=== PATIENT | male | born 1945 | race Caucasian/White ===

== ENCOUNTER 2019-09-18 23:50 | Observation (INO) | payer MEDICARE, OTHER ==
[2019-09-19] MEDS ORDERED: Sodium Chloride 0.9% 1000 ML 1,000 ML IV STA (00:02)
--- NOTE | 2019-09-19 00:16 | ERPHSYRPT ---
- History of Present Illness Time Seen by Provider: 09/18/19 23:58 Historian: patient Exam Limitations: no limitations Physician History: Patient is a 74-year-old male presents to our ED with complaints of left lower quadrant pain. Pain started today at approximately 5 PM. Patient states he had been feeling bloated all day. Pain described as an ache that is localized to the left lower quadrant. Patient states the pain tends to come and go in waves. No testicular pain. Pain is associated with diarrhea. Diarrhea is nonbloody nonbilious. No nausea or vomiting. No trauma. No fevers. Symptoms are mild to moderate in intensity. Pain is currently mild. Patient declined pain medication. Patient denies previous history of the same. Patient is otherwise generally healthy. He voices no other complaints at this time. Timing/Duration: today Activities at Onset: none Quality: cramping Abdominal Pain Onset Location: LLQ Pain Radiation: no radiation Severity of Pain-Max: moderate Severity of Pain-Current: moderate Modifying Factors: Improves With: nothing Associated Symptoms: diarrhea, No chest pain, No nausea, No shortness of breath , No testicular pain Previous symptoms: no prior history Allergies/Adverse Reactions: enalapril Adverse Reaction (Verified 09/19/19 00:15) Home Medications: Amlodipine Besylate 5 mg PO DAILY 09/19/19 [History] Metoprolol Succinate 100 mg PO DAILY 09/19/19 [History] Tolterodine Tartrate [Tolterodine Tartrate ER] 4 mg PO DAILY 09/19/19 [History] - Review of Systems Constitutional: No Symptoms, No Fever, No Chills Eyes: No Symptoms Ears, Nose, & Throat: No Symptoms Respiratory: No Symptoms, No Cough, No Dyspnea Cardiac: No Symptoms, No Chest Pain, No Edema, No Syncope Abdominal/Gastrointestinal: Abdominal Pain, Diarrhea, No Nausea, No Vomiting Genitourinary Symptoms: No Symptoms, No Dysuria Musculoskeletal: No Symptoms, No Back Pain, No Neck Pain Skin: No Symptoms, No Rash Neurological: No Symptoms, No Dizziness, No Focal Weakness, No Sensory Changes Psychological: No Symptoms Endocrine: No Symptoms Hematologic/Lymphatic: No Symptoms Immunological/Allergic: No Symptoms All Other Systems: Reviewed and Negative - Past Medical History Pertinent Past Medical History: Yes Neurological History: No Pertinent History ENT History: No Pertinent History Cardiac History: Hypertension Respiratory History: No Pertinent History Endocrine Medical History: No Pertinent History Musculoskeletal History: Arthritis GI Medical History: Other History: No Pertinent History Psycho-Social History: No Pertinent History Male Reproductive Disorders: Prostate Cancer Other Medical History: Fatty Liver. Prostate removed 08/2018 - Past Surgical History Past Surgical History: Yes Neuro Surgical History: No Pertinent History Cardiac: No Pertinent History Respiratory: No Pertinent History Gastrointestinal: No Pertinent History Genitourinary: No Pertinent History Musculoskeletal: No Pertinent History Male Surgical History: Prostate Surgery - Social History Drug Use: none - Nursing Vital Signs Nursing Vital Signs: Initial Vital Signs Temperature 97.4 F 09/18/19 23:54 Pulse Rate 74 09/18/19 23:54 Respiratory Rate 18 09/18/19 23:54 Blood Pressure 128/90 09/18/19 23:54 O2 Sat by Pulse Oximetry 96 09/18/19 23:54 Pain Scale Pain Intensity 8 - Physical Exam General Appearance: no apparent distress, alert Eye Exam: PERRL/EOMI, eyes nml inspection Ears, Nose, Throat Exam: normal ENT inspection, pharynx normal, moist mucous membranes Neck Exam: normal inspection, non-tender, supple, full range of motion Respiratory Exam: normal breath sounds, lungs clear, No respiratory distress Cardiovascular Exam: regular rate/rhythm, normal heart sounds Gastrointestinal/Abdomen Exam: soft, tenderness, No mass, No guarding, No pulsatile mass, No rebound, No organomegaly, No splenomegaly (TTP LLQ. Overlying soft tissue intact.) Back Exam: normal inspection, normal range of motion, No CVA tenderness, No vertebral tenderness Extremity Exam: normal inspection, normal range of motion, pelvis stable Neurologic Exam: alert, oriented x 3, cooperative, normal mood/affect, nml cerebellar function, sensation nml, No motor deficits Skin Exam: normal color, warm, dry SpO2 Interpretation: normal SpO2: 96 O2 Delivery: Room Air - Course Nursing assessment & vital signs reviewed: Yes - CT Exams Abdomen/Pelvis CT Interpretation: Tele-radiologist Report (CT reveals possible granulomatous disease, coronary artery calcifications, dilated bile ducts, degenerative joint disease.) Ordered Tests: Active Orders 24 hr Category Date Time Status IV Insertion STAT Care 09/19/19 00:02 Active Isolation, Initiate & Maintain Q4H Care 09/19/19 00:14 Active ABDOMEN AND PELVIS W/0 CONTRAS [CT] Stat Exams 09/19/19 00:03 Taken CBC W DIFF Stat Lab 09/19/19 00:20 Completed CMP Stat Lab 09/19/19 00:20 Completed CULTURE,URINE Stat Lab 09/19/19 01:00 Received LIPASE Stat Lab 09/19/19 00:20 Completed TROPONIN Q3H Lab 09/19/19 00:20 Completed TROPONIN Q3H Lab 09/19/19 03:15 Ordered TROPONIN Q3H Lab 09/19/19 06:15 Ordered TROPONIN Q3H Lab 09/19/19 09:15 Ordered TROPONIN Q3H Lab 09/19/19 12:15 Ordered UA W/RFX UR CULTURE Stat Lab 09/19/19 01:00 Completed Transfer Order Routine Transfer 09/19/19 Ordered Medication Summary Generic Name Dose Route Start Last Admin Trade Name Freq PRN Reason Stop Dose Admin Piperacillin Sod/Tazobactam Sod 3.375 gm in 100 mls @ 200 mls/hr 09/19/19 01: 32 Zosyn 3.375gm/100 Ml D5w IV 09/19/19 02:01 STAT STA Discontinued Medications Generic Name Dose Route Start Last Admin Trade Name Freq PRN Reason Stop Dose Admin Sodium Chloride 1,000 mls @ 999 mls/hr 09/19/19 00:02 09/19/19 00:36 Sodium Chloride 0.9% 1000 Ml IV 09/19/19 01:02 999 mls/hr .Q1H1M STA Administration Sodium Chloride Confirm 09/19/19 00:34 Sodium Chloride 0.9% 1000 Ml Administered 09/19/19 00:35 Dose 1,000 mls @ ud .ROUTE .STK-MED ONE Piperacillin Sod/Tazobactam Sod Confirm 09/19/19 01:45 Zosyn 3.375gm/100 Ml D5w Administered 09/19/19 01:46 Dose 3.375 gm in 100 mls @ ud IV .STK-MED ONE Morphine Sulfate 2 mg 09/19/19 00:31 09/19/19 00:33 Morphine Sulfate 2 Mg Inj IV 09/19/19 00:32 2 mg STAT ONE Administration Morphine Sulfate Confirm 09/19/19 00:32 Morphine Sulfate 2 Mg Inj Administered 09/19/19 00:33 Dose 2 mg .ROUTE .STK-MED ONE Morphine Sulfate 2 mg 09/19/19 01:36 09/19/19 01:40 Morphine Sulfate 2 Mg Inj IV 09/19/19 01:37 2 mg STAT ONE Administration Morphine Sulfate Confirm 09/19/19 01:38 Morphine Sulfate 2 Mg Inj Administered 09/19/19 01:39 Dose 2 mg .ROUTE .STK-MED ONE Ondansetron HCl 4 mg 09/19/19 00:43 09/19/19 00:46 Zofran 4 Mg/2 Ml Vial IV 09/19/19 00:44 4 mg STAT ONE Administration Ondansetron HCl Confirm 09/19/19 00:45 Zofran 4 Mg/2 Ml Vial Administered 09/19/19 00:46 Dose 4 mg .ROUTE .STK-MED ONE Lab/Rad Data: Laboratory Result Diagrams 09/19/19 00:20 09/19/19 00:20 Laboratory Results 09/19/19 09/19/19 09/19/19 Range/Units 01:00 00:20 00:20 WBC (4.0-10.5) K/mm3 RBC (4.1-5.6) M/mm3 Hgb (12.5-18.0) gm/dl Hct (42-50) % MCV (78-100) fl MCH (26-32) pg MCHC (32-36) g/dl RDW (11.5-14.0) % Plt Count (150-450) K/mm3 MPV (7.5-11.0) fl Gran % (36.0-66.0) % Eos # (Auto) (0-0.5) Absolute Lymphs (auto) (1.0-4.6) Absolute Monos (auto) (0.0-1.3) Lymphocytes % (24.0-44.0) % Monocytes % (0.0-12.0) % Eosinophils % (0.00-5.0) % Basophils % (0.0-0.4) % Absolute Granulocytes (1.4-6.9) Basophils # (0-0.4) Sodium 143 (137-145) mmol/L Potassium 4.1 (3.5-5.1) mmol/L Chloride 109 H (98-107) mmol/L Carbon Dioxide 21 L (22-30) mmol/L Anion Gap 17.2 H (5-15) MEQ/L BUN 24 H (9-20) mg/dL Creatinine 1.49 H (0.66-1.25) mg/dL Estimated GFR 49.3 ML/MIN Glucose 150 H (74-106) mg/dL Calcium 9.8 (8.4-10.2) mg/dL Total Bilirubin 2.20 H (0.2-1.3) mg/dL AST 45 (17-59) U/L ALT 52 H (0-50) U/L Alkaline Phosphatase 85 (38-126) U/L Troponin I < 0.012 (0.000-0.034) ng/mL Serum Total Protein 8.3 H (6.3-8.2) g/dL Albumin 4.6 (3.5-5.0) g/dL Lipase 145 (23-300) U/L Urine Color URSZULA (YELLOW) Urine Appearance SLIGHTLY CLOUDY (CLEAR) Urine pH 5.0 (5-6) Ur Specific [place] 1.023 (1.005-1.025) Urine Protein 100 (Negative) Urine Ketones TRACE (NEGATIVE) Urine Blood SMALL (0-5) Azael/ul Urine Nitrite NEGATIVE (NEGATIVE) Urine Bilirubin NEGATIVE (NEGATIVE) Urine Urobilinogen NEGATIVE (0-1) mg/dL Ur Leukocyte Esterase NEGATIVE (NEGATIVE) Urine WBC (Auto) 6-10 (0-5) /HPF Urine RBC (Auto) 3-5 (0-2) /HPF U Hyaline Cast (Auto) 11-25 (0-2) /LPF U Epithel Cells (Auto) RARE (FEW) /HPF Urine Bacteria (Auto) FEW (NEGATIVE) /HPF Urine Mucus (Auto) MODERATE (NEGATIVE) /HPF Urine Culture Reflexed YES (NO) Urine Glucose 50 (NEGATIVE) mg/dL 09/19/19 Range/Units 00:20 WBC 15.1 H (4.0-10.5) K/mm3 RBC 5.93 H (4.1-5.6) M/mm3 Hgb 18.3 H (12.5-18.0) gm/dl Hct 52.8 H (42-50) % MCV 89.0 (78-100) fl MCH 30.9 (26-32) pg MCHC 34.7 (32-36) g/dl RDW 13.9 (11.5-14.0) % Plt Count 276 (150-450) K/mm3 MPV 10.4 (7.5-11.0) fl Gran % 78.7 H (36.0-66.0) % Eos # (Auto) 0.22 (0-0.5) Absolute Lymphs (auto) 1.88 (1.0-4.6) Absolute Monos (auto) 1.07 (0.0-1.3) Lymphocytes % 12.5 L (24.0-44.0) % Monocytes % 7.1 (0.0-12.0) % Eosinophils % 1.5 (0.00-5.0) % Basophils % 0.2 (0.0-0.4) % Absolute Granulocytes 11.86 H (1.4-6.9) Basophils # 0.03 (0-0.4) Sodium (137-145) mmol/L Potassium (3.5-5.1) mmol/L Chloride (98-107) mmol/L Carbon Dioxide (22-30) mmol/L Anion Gap (5-15) MEQ/L BUN (9-20) mg/dL Creatinine (0.66-1.25) mg/dL Estimated GFR ML/MIN Glucose (74-106) mg/dL Calcium (8.4-10.2) mg/dL Total Bilirubin (0.2-1.3) mg/dL AST (17-59) U/L ALT (0-50) U/L Alkaline Phosphatase (38-126) U/L Troponin I (0.000-0.034) ng/mL Serum Total Protein (6.3-8.2) g/dL Albumin (3.5-5.0) g/dL Lipase (23-300) U/L Urine Color (YELLOW) Urine Appearance (CLEAR) Urine pH (5-6) Ur Specific [place] (1.005-1.025) Urine Protein (Negative) Urine Ketones (NEGATIVE) Urine Blood (0-5) Azael/ul Urine Nitrite (NEGATIVE) Urine Bilirubin (NEGATIVE) Urine Urobilinogen (0-1) mg/dL Ur Leukocyte Esterase (NEGATIVE) Urine WBC (Auto) (0-5) /HPF Urine RBC (Auto) (0-2) /HPF U Hyaline Cast (Auto) (0-2) /LPF U Epithel Cells (Auto) (FEW) /HPF Urine Bacteria (Auto) (NEGATIVE) /HPF Urine Mucus (Auto) (NEGATIVE) /HPF Urine Culture Reflexed (NO) Urine Glucose (NEGATIVE) mg/dL - Progress Progress: improved Progress Note: 09/19/19 01:52 Patient reassessed. Patient continues to have recurrent bouts of diarrhea nausea and vomiting while in our ED. IV fluids administered. UA significant for a pyuria. CT negative for colitis. Laboratory work-up reveals a leukocytosis. Patient also appears to have an acute renal injury likely due to dehydration from nausea vomiting and diarrhea. Zosyn infused. In light of patient's ongoing symptoms despite of treatment we will admit patient observation for further evaluation and treatment. Case discussed with Dr. Glez who accepts admission to observation. Plan of care discussed with patient. He agrees admission to [facility] for further evaluation and treatment. Discussed with Dr.: Nasima Will see patient in: hospital (observation) Counseled pt/family regarding: lab results, diagnosis, rad results - Departure Departure Disposition: Home Clinical Impression: Abdominal pain, Leukocytosis, Dehydration, Acute renal injury, UTI (urinary tract infection), Coronary artery calcification, Granulomatous disease, chronic , Dilated bile duct, Degenerative joint disease Condition: Stable Critical Care Time: No Referrals: ANTIONE DUKE MD [Primary Care Provider] -
[2019-09-19 00:30] LABS: Absolute Neutrophil Ct (ANC) 11.86 (1.4-6.9); BASOPHIL % 0.2 % (0.0-0.4); Basophil (Absolute #) 0.03 (0-0.4); Eosinophil % 1.5 % (0.00-5.0); Eosinophil (Absolute #) 0.22 (0-0.5); Hematocrit 52.8 % (42-50); Hemoglobin 18.3 gm/dl (12.5-18.0); Lymphocyte (Absolute #) 1.88 (1.0-4.6); Lymphocytes % 12.5 % (24.0-44.0); Mean Corpuscular Hemoglobin 30.9 pg (26-32); Mean Corpuscular Hgb Concent. 34.7 g/dl (32-36); Mean Platelet Volume 10.4 fl (7.5-11.0); Monocyte (Absolute #) 1.07 (0.0-1.3); Monocytes % 7.1 % (0.0-12.0); Neutrophil % 78.7 % (36.0-66.0); Platelet Count 276 K/mm3 (150-450); Red Blood Count 5.93 M/mm3 (4.1-5.6); Red Cell Distribution Width 13.9 % (11.5-14.0); White Blood Count 15.1 K/mm3 (4.0-10.5)
[2019-09-19] MEDS ORDERED: MORPHINE SULFATE 2 MG INJ IV ONE ×2 (00:31→01:36)
[2019-09-19] MEDS ORDERED: MORPHINE SULFATE 2 MG INJ ONE ×2 (00:32→01:38)
[2019-09-19] MEDS ORDERED: Sodium Chloride 0.9% 1000 ML 1,000 ML ONE (00:34)
[2019-09-19 00:39] LABS: ALBUMIN 4.6 g/dL (3.5-5.0); ANION GAP 17.2 MEQ/L (5-15); BILIRUBIN,TOTAL 2.2 mg/dL (0.2-1.3); Calcium 9.8 mg/dL (8.4-10.2); Creatinine 1 1.49 mg/dL (0.66-1.25); Potassium 4.1 mmol/L (3.5-5.1); Total Protein 8.3 g/dL (6.3-8.2)
[2019-09-19] MEDS ORDERED: Zofran 4 MG/2 ML VIAL IV ONE (00:43)
[2019-09-19] MEDS ORDERED: Zofran 4 MG/2 ML VIAL ONE (00:45)
[2019-09-19 01:07] LABS: Appearance SLIGHTLY CLOUDY (CLEAR); Bacteria FEW /HPF (NEGATIVE); Bilirubin NEGATIVE (NEGATIVE); Blood SMALL Ery/ul (0-5); Epithelial Cells RARE /HPF (FEW); Glucose 50 mg/dL (NEGATIVE); Ketones TRACE (NEGATIVE); Leukocyte Esterase NEGATIVE (NEGATIVE); Mucus MODERATE /HPF (NEGATIVE); Nitrite NEGATIVE (NEGATIVE); Protein,Urine Dip 100 (Negative); Specific Gravity 1.023 (1.005-1.025); Urobilinogen NEGATIVE mg/dL (0-1)
[2019-09-19] MEDS ORDERED: Zosyn 3.375GM/100 Ml D5W 3.375 GM/100 ML IVPB IV STA (01:32)
[2019-09-19] MEDS ORDERED: Zosyn 3.375GM/100 Ml D5W 3.375 GM/100 ML IVPB IV ONE (01:45)
[2019-09-19] MEDS ORDERED: MORPHINE SULFATE 4 MG INJ IV PRN (02:08)
[2019-09-19] MEDS: Sodium Chloride 0.9% 1000 ML 1,000 ML IV SCH ×2 (02:42→12:18)
[2019-09-19 04:40] LABS: Absolute Neutrophil Ct (ANC) 17.61 (1.4-6.9); BASOPHIL % 0.1 % (0.0-0.4); Basophil (Absolute #) 0.02 (0-0.4); Eosinophil % 0.7 % (0.00-5.0); Eosinophil (Absolute #) 0.14 (0-0.5); Hematocrit 54.8 % (42-50); Hemoglobin 18.8 gm/dl (12.5-18.0); Lymphocytes % 5.9 % (24.0-44.0); Mean Cell Volume 89.5 fl (78-100); Mean Corpuscular Hemoglobin 30.7 pg (26-32); Mean Corpuscular Hgb Concent. 34.3 g/dl (32-36); Mean Platelet Volume 10.5 fl (7.5-11.0); Monocyte (Absolute #) 1.22 (0.0-1.3); Neutrophil % 87.3 % (36.0-66.0); Platelet Count 271 K/mm3 (150-450); Red Blood Count 6.12 M/mm3 (4.1-5.6); Red Cell Distribution Width 14.2 % (11.5-14.0); White Blood Count 20.2 K/mm3 (4.0-10.5)
[2019-09-19 04:56] LABS: ALBUMIN 4.5 g/dL (3.5-5.0); ANION GAP 16.3 MEQ/L (5-15); BILIRUBIN,TOTAL 2.3 mg/dL (0.2-1.3); Calcium 9.6 mg/dL (8.4-10.2); Creatinine 1 1.4 mg/dL (0.66-1.25); Potassium 4.9 mmol/L (3.5-5.1); Total Protein 8.1 g/dL (6.3-8.2)
[2019-09-19 09:09] LABS: Adenovirus F 40/41 NEGATIVE (NEGATIVE); Astrovirus NEGATIVE (NEGATIVE); C. Difficile Organism NEGATIVE (NEGATIVE); Campylobacter NEGATIVE (NEGATIVE); Cryptosporidium NEGATIVE (NEGATIVE); Cyclospora cayentanensis NEGATIVE (NEGATIVE); Entamoeaba histolytica NEGATIVE (NEGATIVE); Enteroaggregative E.coli NEGATIVE (NEGATIVE); Enteropathogenic E.coli NEGATIVE (NEGATIVE); Enterotoxigenic E.coli NEGATIVE (NEGATIVE); Giardia lamblia NEGATIVE (NEGATIVE); Norovirus GI/GII NEGATIVE (NEGATIVE); Plesiomonas shigelloides NEGATIVE (NEGATIVE); Rotavirus A NEGATIVE (NEGATIVE); Salmonella NEGATIVE (NEGATIVE); Sapovirus NEGATIVE (NEGATIVE); Shiga-like toxin prod.E.coli NEGATIVE (NEGATIVE); Vibrio NEGATIVE (NEGATIVE); Vibrio cholerae NEGATIVE (NEGATIVE); Yersinia enterocolitica NEGATIVE (NEGATIVE)
--- NOTE | 2019-09-19 09:17 | XRAY ---
Indication: Lower abdomen pain. Diarrhea. Elevated WBC. Multiple contiguous axial images obtained through the abdomen and pelvis without contrast as ordered. Comparison: None Lung bases demonstrates minimal bilateral dependent atelectasis. No infiltrate or effusion. Heart is not enlarged. Small hiatal hernia. Stomach is moderately distended with food/fluid. Noncontrasted stomach and bowel loops appear nonobstructed. Normal appendix. Liver demonstrates faint peripheral portal venous air. Additional tiny mesenteric venous air seen in the left upper quadrant, centered around the stomach. Findings are worrisome for GI ischemia. No obvious pneumatosis intestinalis or free fluid/air. Diffuse fatty liver 20 cm hepatomegaly. Also 13 cm splenomegaly. Tiny hepatic/splenic calcified granulomas. Left mid-upper kidney demonstrates cortical thinning/scarring. Previous prostatectomy. Urinary bladder is empty and grossly unremarkable. Remaining gallbladder, pancreas, adrenal glands, kidneys, and ureters appear unremarkable for noncontrast exam. Mild/moderate scattered aortoiliac calcifications without AAA. Osseous structures intact with mild osteopenia, mild/moderate multilevel thoracolumbar spondylosis, and 4 mm L3 spondylolisthesis. Both hips demonstrates mild weightbearing degenerative joint space narrowing. No ventral or inguinal hernias. Impression: 1. Abnormal portal venous air as detailed worrisome for GI ischemia. 2. Incidental small hiatal hernia, diffuse fatty hepatomegaly, splenomegaly, chronic bony findings, and evidence for old granulomatous disease. Comment: Preliminary interpretation was made by [facility] who does not report critical finding for portal venous air. Telephone report was given to Dr. Whitehead in the ER at 0848 hours on September 19, 2019.
--- NOTE | 2019-09-19 10:27 | PCM.BN ---
Brief Admission Note - Admission Note Brief Admisson Note: Patient admitted @ 09/19/19 02:02 to Med Surg with diarrhea LLQ mid lower abdominal pain And elevated WBC. CT Abd/Pelvis Final report read as portal venous air worrisome for GI ischemia. I spoke with Dr John Macias by phone and he will see patient today. At this time patient is comfortable and abdomen is not acute. WBC is elevated ,is on IV Zosyn from ER.Medication List reviewed and reconciled.
[2019-09-19] MEDS: Toprol Xl 100 MG PO SCH (10:56)
[2019-09-19] MEDS: Zosyn 3.375 GM Vial 3.375 GM in Sodium Chloride 100ML MINI-BAG PLUS 100 ML IV SCH ×3 (11:50→23:19)
--- NOTE | 2019-09-19 17:39 | PCM.CONS ---
History of Present Illness - Reason for Consult Chief Complaint: abd pain Reason for Consult: abd pain Requesting Provider: SYLVESTER SANDOVAL DO Consulting Provider: CARLIN AHUMADA MD History of Present Illness: is a 74 year old male. 09/17 am developed diarrhea. Nonbloody loose stool every 30 minutes throughout the day. He had some bloating and discomfort but around 5PM developed abdominal pain that became severe so called ambulance. location LLQ, constant, but worse in waves. Mild nausea, NBNB emesis once on evening. ED workup with leukocytosis, ct scan with small portal venous gas. benign exam, rescucitated. Today his pain is gone with just some bloating. No nausea. + diarrhea but slowed down to about every 90minutes or so. >750mL liquid stool percy day shift per RN. - Review of Systems Constitutional: No Fever, No Chills Eyes: No Vision Changes Respiratory: No No Symptoms Cardiac: No No Symptoms Abdominal/Gastrointestinal: Abdominal Pain, Nausea, Vomiting, Diarrhea Genitourinary Symptoms: No No Symptoms Musculoskeletal: No No Symptoms Skin: No No Symptoms Neurological: No No Symptoms Endocrine: No No Symptoms Hematologic/Lymphatic: No No Symptoms Medications & Allergies Home Medications: Home Medication List Amlodipine Besylate 5 mg PO DAILY 09/19/19 [History Confirmed 09/19/19] Metoprolol Succinate 100 mg PO DAILY 09/19/19 [History Confirmed 09/19/19] Tolterodine Tartrate [Tolterodine Tartrate ER] 4 mg PO DAILY 09/19/19 [History Confirmed 09/19/19] Allergies/Adverse Reactions: Allergies Allergy/AdvReac Type Severity Reaction Status Date / Time enalapril AdvReac Verified 09/19/19 00:15 - Past Medical History Past Medical History: Yes Neurological History: No Pertinent History ENT History: No Pertinent History Cardiac History: Hypertension Respiratory History: No Pertinent History Endocrine Medical History: No Pertinent History Musculoskelatal History: Arthritis GI Medical History: Other History: No Pertinent History Pyscho-Social History: No Pertinent History Male Reproductive Disorders: Prostate Cancer Comment: Fatty Liver. Prostate removed 08/2018 - Past Surgical History Past Surgical History: Yes Neuro Surgical History: No Pertinent History Cardiac History: No Pertinent History Respiratory Surgery: No Pertinent History GI Surgical History: No Pertinent History Genitourinary Surgical Hx: Other (prostatectomy) Musculskeletal Surgical Hx: No Pertinent History Male Surgical History: Prostate Surgery - Social History Smoking Status: Current every day smoker How long have you smoked: 40 years Exposure to second hand smoke: No Alcohol: None Drug Use: none - Physical Exam Vital Signs: Vital Signs - 24 hr Temp Pulse Resp BP Pulse Ox 09/19/19 16:00 98.1 F 56 L 18 134/68 97 09/19/19 11:46 97.9 F 73 18 120/65 97 09/19/19 07:26 97.8 F 86 20 125/76 96 09/19/19 02:36 97.5 F 83 20 133/75 94 L 09/19/19 01:54 96 09/19/19 01:40 89 18 135/88 97 09/19/19 00:51 85 18 136/83 98 09/18/19 23:54 97.4 F 74 18 128/90 96 General Appearance: no apparent distress Neurologic Exam: alert, oriented x 3, cooperative, normal mood/affect Eye Exam: No scleral icterus Ears, Nose, Throat Exam: moist mucous membranes Neck Exam: normal inspection Respiratory Exam: No respiratory distress Cardiovascular Exam: regular rate/rhythm Gastrointestinal/Abdomen Exam: soft, No tenderness, No distention, No mass, No guarding Results - Labs Lab/Micro Results: Lab Results-Last 24 Hours 09/19/19 09/19/19 09/19/19 Range/Units 00:20 00:20 00:20 WBC 15.1 H (4.0-10.5) K/mm3 RBC 5.93 H (4.1-5.6) M/mm3 Hgb 18.3 H (12.5-18.0) gm/dl Hct 52.8 H (42-50) % MCV 89.0 (78-100) fl MCH 30.9 (26-32) pg MCHC 34.7 (32-36) g/dl RDW 13.9 (11.5-14.0) % Plt Count 276 (150-450) K/mm3 MPV 10.4 (7.5-11.0) fl Gran % 78.7 H (36.0-66.0) % Eos # (Auto) 0.22 (0-0.5) Absolute Lymphs (auto) 1.88 (1.0-4.6) Absolute Monos (auto) 1.07 (0.0-1.3) Lymphocytes % 12.5 L (24.0-44.0) % Monocytes % 7.1 (0.0-12.0) % Eosinophils % 1.5 (0.00-5.0) % Basophils % 0.2 (0.0-0.4) % Absolute Granulocytes 11.86 H (1.4-6.9) Basophils # 0.03 (0-0.4) Sodium 143 (137-145) mmol/L Potassium 4.1 (3.5-5.1) mmol/L Chloride 109 H (98-107) mmol/L Carbon Dioxide 21 L (22-30) mmol/L Anion Gap 17.2 H (5-15) MEQ/L BUN 24 H (9-20) mg/dL Creatinine 1.49 H (0.66-1.25) mg/dL Estimated GFR 49.3 ML/MIN Glucose 150 H (74-106) mg/dL Calcium 9.8 (8.4-10.2) mg/dL Total Bilirubin 2.20 H (0.2-1.3) mg/dL AST 45 (17-59) U/L ALT 52 H (0-50) U/L Alkaline Phosphatase 85 (38-126) U/L Troponin I < 0.012 (0.000-0.034) ng/mL Serum Total Protein 8.3 H (6.3-8.2) g/dL Albumin 4.6 (3.5-5.0) g/dL Lipase 145 (23-300) U/L Urine Color (YELLOW) Urine Appearance (CLEAR) Urine pH (5-6) Ur Specific [place] (1.005-1.025) Urine Protein (Negative) Urine Ketones (NEGATIVE) Urine Blood (0-5) Azael/ul Urine Nitrite (NEGATIVE) Urine Bilirubin (NEGATIVE) Urine Urobilinogen (0-1) mg/dL Ur Leukocyte Esterase (NEGATIVE) Urine WBC (Auto) (0-5) /HPF Urine RBC (Auto) (0-2) /HPF U Hyaline Cast (Auto) (0-2) /LPF U Epithel Cells (Auto) (FEW) /HPF Urine Bacteria (Auto) (NEGATIVE) /HPF Urine Mucus (Auto) (NEGATIVE) /HPF Urine Culture Reflexed (NO) Urine Glucose (NEGATIVE) mg/dL Stl C. cayetanensis PCR (NEGATIVE) Stl Adenov F 40/41 PCR (NEGATIVE) Stool Astrovirus (PCR) (NEGATIVE) Stool Cryptosporidium PCR (NEGATIVE) Stool EPEC (PCR) (NEGATIVE) Stool EAEC (PCR) (NEGATIVE) Stl E. histolytica PCR (NEGATIVE) Stl P. shigelloides PCR (NEGATIVE) Stool Sapovirus (PCR) (NEGATIVE) St Y.enterocolitica PCR (NEGATIVE) Stool Vibrio (PCR) (NEGATIVE) Stl Vibrio cholerae PCR (NEGATIVE) Stl Norovirus GI/GII PCR (NEGATIVE) Campylobacter (PCR) (NEGATIVE) C. difficile (PCR) (NEGATIVE) Enterotoxigenic E. coli (NEGATIVE) E.coli Shiga Toxins (NEGATIVE) Giardia lamblia (NEGATIVE) Rotavirus A (PCR) (NEGATIVE) Salmonella (PCR) (NEGATIVE) Shigella (PCR) (NEGATIVE) 09/19/19 09/19/19 09/19/19 Range/Units 01:00 04:15 04:15 WBC 20.2 H (4.0-10.5) K/mm3 RBC 6.12 H* (4.1-5.6) M/mm3 Hgb 18.8 H (12.5-18.0) gm/dl Hct 54.8 H (42-50) % MCV 89.5 (78-100) fl MCH 30.7 (26-32) pg MCHC 34.3 (32-36) g/dl RDW 14.2 H (11.5-14.0) % Plt Count 271 (150-450) K/mm3 MPV 10.5 (7.5-11.0) fl Gran % 87.3 H (36.0-66.0) % Eos # (Auto) 0.14 (0-0.5) Absolute Lymphs (auto) 1.20 (1.0-4.6) Absolute Monos (auto) 1.22 (0.0-1.3) Lymphocytes % 5.9 L (24.0-44.0) % Monocytes % 6.0 (0.0-12.0) % Eosinophils % 0.7 (0.00-5.0) % Basophils % 0.1 (0.0-0.4) % Absolute Granulocytes 17.61 H (1.4-6.9) Basophils # 0.02 (0-0.4) Sodium (137-145) mmol/L Potassium (3.5-5.1) mmol/L Chloride (98-107) mmol/L Carbon Dioxide (22-30) mmol/L Anion Gap (5-15) MEQ/L BUN (9-20) mg/dL Creatinine (0.66-1.25) mg/dL Estimated GFR ML/MIN Glucose (74-106) mg/dL Calcium (8.4-10.2) mg/dL Total Bilirubin (0.2-1.3) mg/dL AST (17-59) U/L ALT (0-50) U/L Alkaline Phosphatase (38-126) U/L Troponin I < 0.012 (0.000-0.034) ng/mL Serum Total Protein (6.3-8.2) g/dL Albumin (3.5-5.0) g/dL Lipase (23-300) U/L Urine Color URSZULA (YELLOW) Urine Appearance SLIGHTLY CLOUDY (CLEAR) Urine pH 5.0 (5-6) Ur Specific [place] 1.023 (1.005-1.025) Urine Protein 100 (Negative) Urine Ketones TRACE (NEGATIVE) Urine Blood SMALL (0-5) Azael/ul Urine Nitrite NEGATIVE (NEGATIVE) Urine Bilirubin NEGATIVE (NEGATIVE) Urine Urobilinogen NEGATIVE (0-1) mg/dL Ur Leukocyte Esterase NEGATIVE (NEGATIVE) Urine WBC (Auto) 6-10 (0-5) /HPF Urine RBC (Auto) 3-5 (0-2) /HPF U Hyaline Cast (Auto) 11-25 (0-2) /LPF U Epithel Cells (Auto) RARE (FEW) /HPF Urine Bacteria (Auto) FEW (NEGATIVE) /HPF Urine Mucus (Auto) MODERATE (NEGATIVE) /HPF Urine Culture Reflexed YES (NO) Urine Glucose 50 (NEGATIVE) mg/dL Stl C. cayetanensis PCR (NEGATIVE) Stl Adenov F 40/41 PCR (NEGATIVE) Stool Astrovirus (PCR) (NEGATIVE) Stool Cryptosporidium PCR (NEGATIVE) Stool EPEC (PCR) (NEGATIVE) Stool EAEC (PCR) (NEGATIVE) Stl E. histolytica PCR (NEGATIVE) Stl P. shigelloides PCR (NEGATIVE) Stool Sapovirus (PCR) (NEGATIVE) St Y.enterocolitica PCR (NEGATIVE) Stool Vibrio (PCR) (NEGATIVE) Stl Vibrio cholerae PCR (NEGATIVE) Stl Norovirus GI/GII PCR (NEGATIVE) Campylobacter (PCR) (NEGATIVE) C. difficile (PCR) (NEGATIVE) Enterotoxigenic E. coli (NEGATIVE) E.coli Shiga Toxins (NEGATIVE) Giardia lamblia (NEGATIVE) Rotavirus A (PCR) (NEGATIVE) Salmonella (PCR) (NEGATIVE) Shigella (PCR) (NEGATIVE) 09/19/19 09/19/19 09/19/19 Range/Units 04:15 06:20 06:48 WBC (4.0-10.5) K/mm3 RBC (4.1-5.6) M/mm3 Hgb (12.5-18.0) gm/dl Hct (42-50) % MCV (78-100) fl MCH (26-32) pg MCHC (32-36) g/dl RDW (11.5-14.0) % Plt Count (150-450) K/mm3 MPV (7.5-11.0) fl Gran % (36.0-66.0) % Eos # (Auto) (0-0.5) Absolute Lymphs (auto) (1.0-4.6) Absolute Monos (auto) (0.0-1.3) Lymphocytes % (24.0-44.0) % Monocytes % (0.0-12.0) % Eosinophils % (0.00-5.0) % Basophils % (0.0-0.4) % Absolute Granulocytes (1.4-6.9) Basophils # (0-0.4) Sodium 143 (137-145) mmol/L Potassium 4.9 (3.5-5.1) mmol/L Chloride 110 H (98-107) mmol/L Carbon Dioxide 22 (22-30) mmol/L Anion Gap 16.3 H (5-15) MEQ/L BUN 24 H (9-20) mg/dL Creatinine 1.40 H (0.66-1.25) mg/dL Estimated GFR 52.9 ML/MIN Glucose 159 H (74-106) mg/dL Calcium 9.6 (8.4-10.2) mg/dL Total Bilirubin 2.30 H (0.2-1.3) mg/dL AST 42 (17-59) U/L ALT 50 (0-50) U/L Alkaline Phosphatase 85 (38-126) U/L Troponin I < 0.012 (0.000-0.034) ng/mL Serum Total Protein 8.1 (6.3-8.2) g/dL Albumin 4.5 (3.5-5.0) g/dL Lipase (23-300) U/L Urine Color (YELLOW) Urine Appearance (CLEAR) Urine pH (5-6) Ur Specific [place] (1.005-1.025) Urine Protein (Negative) Urine Ketones (NEGATIVE) Urine Blood (0-5) Azael/ul Urine Nitrite (NEGATIVE) Urine Bilirubin (NEGATIVE) Urine Urobilinogen (0-1) mg/dL Ur Leukocyte Esterase (NEGATIVE) Urine WBC (Auto) (0-5) /HPF Urine RBC (Auto) (0-2) /HPF U Hyaline Cast (Auto) (0-2) /LPF U Epithel Cells (Auto) (FEW) /HPF Urine Bacteria (Auto) (NEGATIVE) /HPF Urine Mucus (Auto) (NEGATIVE) /HPF Urine Culture Reflexed (NO) Urine Glucose (NEGATIVE) mg/dL Stl C. cayetanensis PCR NEGATIVE (NEGATIVE) Stl Adenov F 40/41 PCR NEGATIVE (NEGATIVE) Stool Astrovirus (PCR) NEGATIVE (NEGATIVE) Stool Cryptosporidium PCR NEGATIVE (NEGATIVE) Stool EPEC (PCR) NEGATIVE (NEGATIVE) Stool EAEC (PCR) NEGATIVE (NEGATIVE) Stl E. histolytica PCR NEGATIVE (NEGATIVE) Stl P. shigelloides PCR NEGATIVE (NEGATIVE) Stool Sapovirus (PCR) NEGATIVE (NEGATIVE) St Y.enterocolitica PCR NEGATIVE (NEGATIVE) Stool Vibrio (PCR) NEGATIVE (NEGATIVE) Stl Vibrio cholerae PCR NEGATIVE (NEGATIVE) Stl Norovirus GI/GII PCR NEGATIVE (NEGATIVE) Campylobacter (PCR) NEGATIVE (NEGATIVE) C. difficile (PCR) NEGATIVE (NEGATIVE) Enterotoxigenic E. coli NEGATIVE (NEGATIVE) E.coli Shiga Toxins NEGATIVE (NEGATIVE) Giardia lamblia NEGATIVE (NEGATIVE) Rotavirus A (PCR) NEGATIVE (NEGATIVE) Salmonella (PCR) NEGATIVE (NEGATIVE) Shigella (PCR) NEGATIVE (NEGATIVE) 09/19/19 09/19/19 Range/Units 09:15 12:00 WBC (4.0-10.5) K/mm3 RBC (4.1-5.6) M/mm3 Hgb (12.5-18.0) gm/dl Hct (42-50) % MCV (78-100) fl MCH (26-32) pg MCHC (32-36) g/dl RDW (11.5-14.0) % Plt Count (150-450) K/mm3 MPV (7.5-11.0) fl Gran % (36.0-66.0) % Eos # (Auto) (0-0.5) Absolute Lymphs (auto) (1.0-4.6) Absolute Monos (auto) (0.0-1.3) Lymphocytes % (24.0-44.0) % Monocytes % (0.0-12.0) % Eosinophils % (0.00-5.0) % Basophils % (0.0-0.4) % Absolute Granulocytes (1.4-6.9) Basophils # (0-0.4) Sodium (137-145) mmol/L Potassium (3.5-5.1) mmol/L Chloride (98-107) mmol/L Carbon Dioxide (22-30) mmol/L Anion Gap (5-15) MEQ/L BUN (9-20) mg/dL Creatinine (0.66-1.25) mg/dL Estimated GFR ML/MIN Glucose (74-106) mg/dL Calcium (8.4-10.2) mg/dL Total Bilirubin (0.2-1.3) mg/dL AST (17-59) U/L ALT (0-50) U/L Alkaline Phosphatase (38-126) U/L Troponin I < 0.012 < 0.012 (0.000-0.034) ng/mL Serum Total Protein (6.3-8.2) g/dL Albumin (3.5-5.0) g/dL Lipase (23-300) U/L Urine Color (YELLOW) Urine Appearance (CLEAR) Urine pH (5-6) Ur Specific [place] (1.005-1.025) Urine Protein (Negative) Urine Ketones (NEGATIVE) Urine Blood (0-5) Azael/ul Urine Nitrite (NEGATIVE) Urine Bilirubin (NEGATIVE) Urine Urobilinogen (0-1) mg/dL Ur Leukocyte Esterase (NEGATIVE) Urine WBC (Auto) (0-5) /HPF Urine RBC (Auto) (0-2) /HPF U Hyaline Cast (Auto) (0-2) /LPF U Epithel Cells (Auto) (FEW) /HPF Urine Bacteria (Auto) (NEGATIVE) /HPF Urine Mucus (Auto) (NEGATIVE) /HPF Urine Culture Reflexed (NO) Urine Glucose (NEGATIVE) mg/dL Stl C. cayetanensis PCR (NEGATIVE) Stl Adenov F 40/41 PCR (NEGATIVE) Stool Astrovirus (PCR) (NEGATIVE) Stool Cryptosporidium PCR (NEGATIVE) Stool EPEC (PCR) (NEGATIVE) Stool EAEC (PCR) (NEGATIVE) Stl E. histolytica PCR (NEGATIVE) Stl P. shigelloides PCR (NEGATIVE) Stool Sapovirus (PCR) (NEGATIVE) St Y.enterocolitica PCR (NEGATIVE) Stool Vibrio (PCR) (NEGATIVE) Stl Vibrio cholerae PCR (NEGATIVE) Stl Norovirus GI/GII PCR (NEGATIVE) Campylobacter (PCR) (NEGATIVE) C. difficile (PCR) (NEGATIVE) Enterotoxigenic E. coli (NEGATIVE) E.coli Shiga Toxins (NEGATIVE) Giardia lamblia (NEGATIVE) Rotavirus A (PCR) (NEGATIVE) Salmonella (PCR) (NEGATIVE) Shigella (PCR) (NEGATIVE) - Radiology Impressions Radiology Exams & Impressions: Radiology Procedures Category Date Time Status ABDOMEN AND PELVIS W/0 CONTRAS [CT] Stat Exams 09/19/19 00:03 Completed Assessment/Plan (1) Abdominal pain Current Visit: Yes Status: Acute Assessment & Plan: 74yo male acute diarrhea, abdominal pain, small amount of portal venous gas, benign exam, symptomatically much improved with rescucitation overnight, leukocytosis, dehydration. -small portal venous gas likely due to dehydration, transient low flow state. His exam is benign and clinically he is much improved. -unclear what has caused this diarrhea. GI panel negative thus far. likely a self limiting process. had a c scope this year with just a polyp. -no plan for surgical intervention -CLD. advance diet as tolerated, supportive care per primary. -call if he shows any clinical worsening - Code(s): R10.9 - UNSPECIFIED ABDOMINAL PAIN
[2019-09-19] MEDS: Ditropan XL 5 MG PO SCH (17:43)
[2019-09-19] MEDS: Sodium Chloride 0.9% W/ 20 mEq KCl/LITER 1,000 ML IV SCH (23:14)
[2019-09-20] MEDS: Zosyn 3.375 GM Vial 3.375 GM in Sodium Chloride 100ML MINI-BAG PLUS 100 ML IV SCH ×2 (05:17→11:13)
[2019-09-20 05:20] LABS: Absolute Neutrophil Ct (ANC) 7.44 (1.4-6.9); BASOPHIL % 0.1 % (0.0-0.4); Basophil (Absolute #) 0.01 (0-0.4); Eosinophil % 4.8 % (0.00-5.0); Eosinophil (Absolute #) 0.56 (0-0.5); Hematocrit 46.9 % (42-50); Lymphocyte (Absolute #) 2.52 (1.0-4.6); Lymphocytes % 21.8 % (24.0-44.0); Mean Cell Volume 90.2 fl (78-100); Mean Corpuscular Hemoglobin 30.8 pg (26-32); Mean Corpuscular Hgb Concent. 34.1 g/dl (32-36); Mean Platelet Volume 10.8 fl (7.5-11.0); Monocyte (Absolute #) 1.02 (0.0-1.3); Monocytes % 8.8 % (0.0-12.0); Neutrophil % 64.5 % (36.0-66.0); Platelet Count 250 K/mm3 (150-450); Red Cell Distribution Width 13.8 % (11.5-14.0); White Blood Count 11.6 K/mm3 (4.0-10.5)
[2019-09-20 05:49] LABS: ALBUMIN 3.5 g/dL (3.5-5.0); ANION GAP 12.9 MEQ/L (5-15); BILIRUBIN,TOTAL 2.7 mg/dL (0.2-1.3); Calcium 8.6 mg/dL (8.4-10.2); Creatinine 1 1.35 mg/dL (0.66-1.25); Potassium 3.6 mmol/L (3.5-5.1); Total Protein 6.4 g/dL (6.3-8.2)
[2019-09-20] MEDS: Sodium Chloride 0.9% W/ 20 mEq KCl/LITER 1,000 ML IV SCH (07:54)
[2019-09-20] MEDS: Ditropan XL 5 MG PO SCH (09:04)
[2019-09-20] MEDS: Toprol Xl 100 MG PO SCH (09:04)
[2019-09-20 12:06] VITALS: BP 129/61; PULSE 57; O2SAT 95
--- NOTE | 2019-09-20 14:54 | PCM.SSS ---
History of Present Illness - Chief Complaint Chief Complaint: abd pain History of Present Illness: is a 74 year old male who was admitted through ER with diarrhea and leukocytosis.He denies Hx GI problems. He has a remote Hx Prostate cancer treated surgically and HTN. - Review of Systems Constitutional: Chills (resolved) Eyes: No Symptoms Ears, Nose, & Throat: No Symptoms Respiratory: No Symptoms Cardiac: No Symptoms Abdominal/Gastrointestinal: Abdominal Pain (LLQ and suprpubic), Vomiting (1 episode at onset,resolved), Melena Genitourinary Symptoms: Other (Hx prostatectomy for prostate cancer) Musculoskeletal: Other (no acute inflamation) Skin: No Symptoms Neurological: No Symptoms Psychological: No Symptoms Endocrine: No Symptoms Hematologic/Lymphatic: No Symptoms Medications & Allergies Home Medications: Home Medication List Amlodipine Besylate 5 mg PO DAILY 09/19/19 [History Confirmed 09/19/19] Metoprolol Succinate 100 mg PO DAILY 09/19/19 [History Confirmed 09/19/19] Tolterodine Tartrate [Tolterodine Tartrate ER] 4 mg PO DAILY 09/19/19 [History Confirmed 09/19/19] Ciprofloxacin HCl [Cipro] 500 mg PO BID 5 Days #10 tablet 09/20/19 [Rx] Allergies/Adverse Reactions: Allergies Allergy/AdvReac Type Severity Reaction Status Date / Time enalapril AdvReac Verified 09/19/19 00:15 - Past Medical History Past Medical History: Yes Neurological History: No Pertinent History ENT History: No Pertinent History Cardiac History: Hypertension Respiratory History: No Pertinent History Endocrine Medical History: No Pertinent History Musculoskelatal History: Arthritis GI Medical History: Other History: No Pertinent History Pyscho-Social History: No Pertinent History Male Reproductive Disorders: Prostate Cancer Comment: Fatty Liver. Prostate removed 08/2018 - Past Surgical History Past Surgical History: Yes Neuro Surgical History: No Pertinent History Cardiac History: No Pertinent History Respiratory Surgery: No Pertinent History GI Surgical History: No Pertinent History Genitourinary Surgical Hx: Other (prostatectomy) Musculskeletal Surgical Hx: No Pertinent History Male Surgical History: Prostate Surgery - Social History Smoking Status: Current every day smoker How long have you smoked: 40 years Exposure to second hand smoke: No Alcohol: None Drug Use: none - Physical Exam Vital Signs: Vital Signs - 24 hr Temp Pulse Resp BP Pulse Ox 09/20/19 12:00 97.6 F 57 L 18 129/61 95 09/20/19 07:51 98 F 67 18 128/60 97 09/20/19 04:00 97.8 F 54 L 18 124/60 95 09/20/19 00:00 98.6 F 66 18 128/71 96 09/19/19 20:00 98.1 F 61 18 124/59 96 09/19/19 16:00 98.1 F 56 L 18 134/68 97 General Appearance: no apparent distress Neurologic Exam: alert, oriented x 3, cooperative, health education director II-XII nml as tested, normal mood/affect Eye Exam: eyes nml inspection Ears, Nose, Throat Exam: moist mucous membranes Neck Exam: normal inspection Cardiovascular Exam: regular rate/rhythm (no edema) Gastrointestinal/Abdomen Exam: soft, normal bowel sounds, tenderness (resolved low abdominal tenderness) Extremity Exam: normal inspection Skin Exam: normal color Results - Labs Lab/Micro Results: Lab Results-Last 24 Hours 09/20/19 09/20/19 Range/Units 04:20 04:20 WBC 11.6 H (4.0-10.5) K/mm3 RBC 5.20 (4.1-5.6) M/mm3 Hgb 16.0 (12.5-18.0) gm/dl Hct 46.9 (42-50) % MCV 90.2 (78-100) fl MCH 30.8 (26-32) pg MCHC 34.1 (32-36) g/dl RDW 13.8 (11.5-14.0) % Plt Count 250 (150-450) K/mm3 MPV 10.8 (7.5-11.0) fl Gran % 64.5 (36.0-66.0) % Eos # (Auto) 0.56 H (0-0.5) Absolute Lymphs (auto) 2.52 (1.0-4.6) Absolute Monos (auto) 1.02 (0.0-1.3) Lymphocytes % 21.8 L (24.0-44.0) % Monocytes % 8.8 (0.0-12.0) % Eosinophils % 4.8 (0.00-5.0) % Basophils % 0.1 (0.0-0.4) % Absolute Granulocytes 7.44 H (1.4-6.9) Basophils # 0.01 (0-0.4) Sodium 142 (137-145) mmol/L Potassium 3.6 D (3.5-5.1) mmol/L Chloride 114 H (98-107) mmol/L Carbon Dioxide 19 L (22-30) mmol/L Anion Gap 12.9 (5-15) MEQ/L BUN 19 (9-20) mg/dL Creatinine 1.35 H (0.66-1.25) mg/dL Estimated GFR 55.2 ML/MIN Glucose 104 (74-106) mg/dL Calcium 8.6 (8.4-10.2) mg/dL Total Bilirubin 2.70 H (0.2-1.3) mg/dL AST 27 (17-59) U/L ALT 30 (0-50) U/L Alkaline Phosphatase 62 (38-126) U/L Serum Total Protein 6.4 (6.3-8.2) g/dL Albumin 3.5 (3.5-5.0) g/dL Amylase 77 (30-110) U/L Lipase 81 (23-300) U/L Microbiology 09/19/19 01:00 Urine Culture - Final Clean Catch Midstream NO GROWTH - Radiology Impressions Radiology Exams & Impressions: Radiology Procedures Category Date Time Status ABDOMEN AND PELVIS W/0 CONTRAS [CT] Stat Exams 09/19/19 00:03 Completed Assessment/Plan (1) Abdominal pain Status: Resolved Qualifiers: Abdominal location: left lower quadrant Qualified Code(s): R10.32 - Left lower quadrant pain Code(s): R10.9 - UNSPECIFIED ABDOMINAL PAIN (2) Leukocytosis Status: Resolved Assessment & Plan: GI panel negative, Was given IV Zosyn Code(s): D72.829 - ELEVATED WHITE BLOOD CELL COUNT, UNSPECIFIED (3) HTN (hypertension), benign Status: Chronic Assessment & Plan: controlled Code(s): I10 - ESSENTIAL (PRIMARY) HYPERTENSION (4) Hx of malignant neoplasm of prostate Status: Resolved Code(s): Z85.46 - PERSONAL HISTORY OF MALIGNANT NEOPLASM OF PROSTATE Hospital Summary - Hospital Course Hospital Course: 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 He has remote Hx Prostate cancer and is on meds for HTN. He developed watery diarrhea that continued until he became diaphoretic and presented through ER. His GI panel was negative. WBC was elevated 20,200 on admission and is down to 11,600 on IV Zosyn. Diarrhea has slowed to only 1 watery stool this morning and diet was advanced from clear liquids to regular diet today. He ate eggs and toast for breakfast and meatloaf for lunch and has not had further BM or abdominal pain. CT abd/pelvis showed concern for possible ischemic bowel and Gen Surgeon was consulted. Dr Macias examined patient and reviewed CT abd /labs but did not feel there was a surgical problem at this time . Patient will follow up with his PCP Dr Yarelis Duke,[facility] in [place]. If he has any issues he was instructed to call [facility] to reach Dr Romero over the weekend. He was given Rx Cipro 500 mg and continued on his usual home meds. - Vitals & Intake/Output Vital Signs: Vital Signs Temperature 97.6 F 09/20/19 12:00 Pulse Rate 57 L 09/20/19 12:00 Respiratory Rate 18 09/20/19 12:00 Blood Pressure 129/61 09/20/19 12:00 O2 Sat by Pulse Oximetry 95 09/20/19 12:00 Intake & Output: Intake & Output 09/18/19 09/19/19 09/20/19 09/21/19 11:59 11:59 11:59 11:59 Intake Total 360 3611 Output Total 400 2400 Balance -40 1211 Weight 106.1 kg - Lab Result Diagrams: 09/20/19 04:20 09/20/19 04:20 Lab Results-Last 24 Hrs: Lab Results-Last 24 Hours 09/20/19 09/20/19 Range/Units 04:20 04:20 WBC 11.6 H (4.0-10.5) K/mm3 RBC 5.20 (4.1-5.6) M/mm3 Hgb 16.0 (12.5-18.0) gm/dl Hct 46.9 (42-50) % MCV 90.2 (78-100) fl MCH 30.8 (26-32) pg MCHC 34.1 (32-36) g/dl RDW 13.8 (11.5-14.0) % Plt Count 250 (150-450) K/mm3 MPV 10.8 (7.5-11.0) fl Gran % 64.5 (36.0-66.0) % Eos # (Auto) 0.56 H (0-0.5) Absolute Lymphs (auto) 2.52 (1.0-4.6) Absolute Monos (auto) 1.02 (0.0-1.3) Lymphocytes % 21.8 L (24.0-44.0) % Monocytes % 8.8 (0.0-12.0) % Eosinophils % 4.8 (0.00-5.0) % Basophils % 0.1 (0.0-0.4) % Absolute Granulocytes 7.44 H (1.4-6.9) Basophils # 0.01 (0-0.4) Sodium 142 (137-145) mmol/L Potassium 3.6 D (3.5-5.1) mmol/L Chloride 114 H (98-107) mmol/L Carbon Dioxide 19 L (22-30) mmol/L Anion Gap 12.9 (5-15) MEQ/L BUN 19 (9-20) mg/dL Creatinine 1.35 H (0.66-1.25) mg/dL Estimated GFR 55.2 ML/MIN Glucose 104 (74-106) mg/dL Calcium 8.6 (8.4-10.2) mg/dL Total Bilirubin 2.70 H (0.2-1.3) mg/dL AST 27 (17-59) U/L ALT 30 (0-50) U/L Alkaline Phosphatase 62 (38-126) U/L Serum Total Protein 6.4 (6.3-8.2) g/dL Albumin 3.5 (3.5-5.0) g/dL Amylase 77 (30-110) U/L Lipase 81 (23-300) U/L Micro Results-Entire Visit: Microbiology 09/19/19 01:00 Urine Culture - Final Clean Catch Midstream NO GROWTH - Radiology Exams Ordered Rad Exams-Entire Visit: Radiology Procedures Category Date Time Status ABDOMEN AND PELVIS W/0 CONTRAS [CT] Stat Exams 09/19/19 00:03 Completed - Discharge Disposition: Home, Self-Care Condition: Stable Prescriptions: New Ciprofloxacin HCl [Cipro] 500 mg PO BID 5 Days #10 tablet Continue Metoprolol Succinate 100 mg PO DAILY Tolterodine Tartrate [Tolterodine Tartrate ER] 4 mg PO DAILY Amlodipine Besylate 5 mg PO DAILY Instructions: Diarrhea in Adolescents and Adults Additional Instructions: CALL DR DUKE'S OFFICE FOR AN APPOINTMENT. IF CAN NOT GET IN, CAN FOLLOW UP WITH DR ROMERO. Follow up with: CARLIN MACIAS MD [ASSOCIATE STAFF] - Call for Appointment YARELIS DUKE MD [Primary Care Provider] - 1 Week
== END 2019-09-20 15:04 | disposition home or self-care (01) ==
LOC: ED 23:50 → ICU 09-19 02:02
PROVIDERS: ADMIT Family Medicine; ATTEND Family Medicine
DX: R10.32 Left lower quadrant pain (principal); R19.7 Diarrhea, unspecified; D72.829 Elevated white blood cell count, unspecified; I10 Essential (primary) hypertension; Z79.899 Other long term (current) drug therapy; Z85.46 Personal history of malignant neoplasm of prostate
CPT/HCPCS: 36000; 36415; 74176; 80053; 81001; 82150; 83690; 84484; 85025; 87086; 87507; 96360; 96365; 96374; 96375; 96376; 99285; G0378; J2270; J2405; J2543; A9270-GY

== ENCOUNTER 2024-04-10 15:52 | Day surgery (SDC) | payer MEDICARE, OTHER ==
[2024-04-10] MEDS ORDERED: Sodium Chloride 0.9(Preservative Free) 10 ML IJ ONE (15:53)
[2024-04-10] MEDS ORDERED: LIDOCAINE HCL 1% AMPUL 5 ML IJ ONE (15:53)
[2024-04-10] MEDS ORDERED: Depo-Medrol 40 MG/ML IM ONE (15:53)
--- NOTE | 2024-04-10 18:33 | XRAY ---
Indication: Lumbar PHIL. Intraoperative fluoroscopy provided for 29 seconds. 6 digital spot images submitted for interpretation demonstrates posterior needle tip projecting posterior to L4-L5 interspace. Small amount of contrast injected for needle tip placement. Correlate with intraoperative findings/report.
--- NOTE | 2024-04-11 08:49 | XRAY ---
29 seconds of fluoroscopy was used in surgery for a lumbar PHIL.
== END 2024-04-10 18:15 | disposition home or self-care (01) ==
LOC: SDC-PAIN 15:52
PROVIDERS: ATTEND Psychiatry & Neurology Pain Medicine
DX: M54.16 Radiculopathy, lumbar region (principal)
CPT/HCPCS: 72100; 77003

== ENCOUNTER 2025-02-10 16:28 | Emergency (ER) | payer MEDICARE, OTHER ==
[2025-02-10 16:53] VITALS: TEMP 98.9
[2025-02-10 17:08] LABS: BASOPHIL % 0.3 % (0.2-1.2); Basophil (Absolute #) 0.06 x10^3/uL (0.01-0.08); Eosinophil (Absolute #) 0.10 x10^3/uL (0.04-0.54); Hematocrit 45.3 % (40.1-51.0); Hemoglobin 15.7 g/dL (13.7-17.5); IMMATURE GRAN # 0.10 x10^3u/L (0.001-0.031); IMMATURE GRAN % 0.5 % (0.001-0.429); Lymphocyte (Absolute #) 1.74 x10^3/uL (1.32-3.57); Mean Corpuscular Hemoglobin 30.7 pg (25.7-32.2); Mean Corpuscular Hgb Concent. 34.7 g/dL (32.3-36.5); Monocyte (Absolute #) 1.65 x10^3/uL (0.30-0.82); NUCLEATED RBC # 0.00 x10^3u/L (0.00-0.012); NUCLEATED RBC % 0.0 % (0.00-0.2); Platelet Count 217 x10^3/uL (163-337); Red Blood Count 5.12 x10^6/uL (4.63-6.08); White Blood Count 19.2 x10^3/uL (4.23-9.07)
[2025-02-10 17:21] LABS: Calcium 9.2 mg/dL (8.4-10.2); Carbon Dioxide 20.0 mmol/L (22-30); Creatinine 1 1.64 mg/dL (0.66-1.25); EST GLOMERULAR FILTRATION RATE 42.8 ML/MIN; Glucose 108.0 mg/dL (74-106); Potassium 4.0 mmol/L (3.5-5.1); SGOT/AST 40.0 U/L (17-59); SGPT/ALT 33.0 U/L (0-50); Total Protein 8.1 g/dL (6.3-8.2)
[2025-02-10 17:23] LABS: INR 1.05 (0.8-3.0); PROTIME 11.4 SECONDS (9.4-12.5); PTT 32.5 SECONDS (25.1-36.5)
--- NOTE | 2025-02-10 18:03 | ERPHSYRPT ---
- History of Present Illness Source: patient, family Patient Subjective Stated Complaint: Pt. states, "I was in here on Monday night and they told me that I have gall stones and they sent me home. I saw Dr. Petersen today and she did some blood work, then when I got home she called me and told me to get out here right away.". Dr. Petersen called and reported that pt. bilirubin level went form 3 to 7+. Triage Nursing Assessment: Pt. ambulated to room without diff., A&Ox3, Skin P/W/D, Resp. even unlabored, skin yellow, warm and dry Physician History: This is a 79-year-old man who was diagnosed with gallstones 2 days ago with a first-time episode of gallbladder issues. He apparently had an elevated bilirubin at that time and was sent home but saw his primary care doctor today with a 20,000 white count and his T. bili going from 3.0-7.2 according to his primary care provider Tremaine Gutiérrez. He has had increasing pain which she ameliorates with sitting still. No fever or chills. No severe vomiting. No chest pain or other anginal equivalent. Allergies/Adverse Reactions: enalapril Adverse Reaction (Verified 02/08/25 21:03) Home Medications: Amlodipine Besylate 10 mg PO DAILY 09/19/19 [History] Metoprolol Succinate 100 mg PO DAILY 09/19/19 [History] Omeprazole 20 mg PO DAILY 02/08/25 [History] Hx Tetanus, Diphtheria Vaccination/Date Given: No Hx Influenza Vaccination/Date Given: Yes Hx Pneumococcal Vaccination/Date Given: Yes Travel Risk - International Travel Have you traveled outside of the country in past 3 weeks: No - Emerging Infectious Disease Are you exhibiting symptoms associated with any current EIDs: No Symptoms: Abdominal Pain - Review of Systems All Other Systems: Reviewed and Negative (As per HPI otherwise negative) - Past Medical History Pertinent Past Medical History: Yes Neurological History: No Pertinent History ENT History: No Pertinent History Cardiac History: Hypertension Respiratory History: No Pertinent History Endocrine Medical History: Other Musculoskeletal History: Degenerative Disk Disease, Osteoarthritis GI Medical History: Other History: No Pertinent History Psycho-Social History: No Pertinent History Male Reproductive Disorders: Prostate Cancer Other Medical History: PMHX: VELAZQUEZ, STATES CHRONIC KIDNEY DISEASE (SEES M.D. AND GETS LABS Q 6 MOS - NO TREATMENT), PROSTATE CA WITH PROSTATECTOMY,. SX HX: LAMINECTOMY MAY 2023 WITH PATIENT REPORTING NO IMPROVEMENT - Past Surgical History Past Surgical History: Yes Neuro Surgical History: No Pertinent History Cardiac: No Pertinent History Respiratory: No Pertinent History Gastrointestinal: No Pertinent History Genitourinary: Other Musculoskeletal: No Pertinent History Male Surgical History: Prostate Surgery - Social History Smoking Status: Light tobacco smoker Exposure to second hand smoke: Yes Drug Use: none - Social Determinants of Health Will the patient participate in the screening: Declined to provide - Nursing Vital Signs Nursing Vital Signs: Initial Vital Signs Temperature 98.9 F 02/10/25 16:29 Pulse Rate 88 02/10/25 16:29 Respiratory Rate 18 02/10/25 16:29 Blood Pressure 139/77 02/10/25 16:29 O2 Sat by Pulse Oximetry 95 02/10/25 16:29 Pain Scale Pain Intensity 2 - Physical Exam SpO2: 92 Comments: 02/10/25 18:08 General: Well-nourished well-developed. No apparent distress. HEENT: Normocephalic atraumatic no obvious facial or neck deformity or injury. Neck: Supple. No deformity or mass noted. CV: RRR NL Perfusion. No edema Resp: No Respiratory distress or adventitious breath sounds Abd: ND outpatient right upper quadrant. No rebound or guarding. MSK: No deformity or TTP Neuro: Alert and Nancy x4. No gross focal neurologic changes Psych: No SI, HI or grave disability Ordered Tests: Active Orders 24 hr Category Date Time Status NPO Diet 02/10/25 18:12 Active Ultrasound Gallbladder [GALLBLADDER] [US] Stat Exams 02/10/25 16:58 Taken CBC W DIFF Stat Lab 02/10/25 17:00 Completed CMP Stat Lab 02/10/25 17:00 Completed CULTURE,URINE Stat Lab 02/10/25 17:42 Received LIPASE Stat Lab 02/10/25 17:00 Completed Lactic Acid Stat Lab 02/10/25 17:05 Completed PT INR [PROTIME WITH INR] Stat Lab 02/10/25 17:00 Completed PTT Stat Lab 02/10/25 17:00 Completed UA W/RFX UR CULTURE Stat Lab 02/10/25 17:42 Completed Medication Summary Generic Name Dose Route Start Last Admin Trade Name Freq PRN Reason Stop Dose Admin Sodium Chloride 1,000 mls @ 999 mls/hr 02/10/25 18:12 02/10/25 18:27 Sodium Chloride 0.9% 1000 Ml IV 02/10/25 19:12 999 mls/hr .Q1H1M STA Administration Discontinued Medications Generic Name Dose Route Start Last Admin Trade Name Jeancarlosq PRN Reason Stop Dose Admin Hydromorphone HCl 0.5 mg 02/10/25 18:10 02/10/25 18:26 Hydromorphone 1 Mg/1ml Inj IV 02/10/25 18:11 0.5 mg STAT ONE Administration Hydromorphone HCl Confirm 02/10/25 18:18 Hydromorphone 1 Mg/1ml Inj Administered 02/10/25 18:19 Dose 1 mg .ROUTE .STK-MED ONE Piperacillin Sod/Tazobactam 100 mls @ 200 mls/hr 02/10/25 18:10 02/10/25 19:07 Sod 3.375 gm/ Sodium Chloride IV 02/10/25 18:39 Infused STAT STA Infusion Sodium Chloride Confirm 02/10/25 18:18 Sodium Chloride 0.9% 1000 Ml Administered 02/10/25 18:19 Dose 1,000 mls @ ud .ROUTE .STK-MED ONE Sodium Chloride Confirm 02/10/25 18:20 Sodium Chloride 0.9% Administered 02/10/25 18:21 Dose 100 mls @ ud .ROUTE .STK-MED ONE Ondansetron HCl 4 mg 02/10/25 18:12 02/10/25 18:34 Ondansetron Hcl 4 Mg/2 Ml Vial IV 02/10/25 18:13 4 mg STAT ONE Administration Ondansetron HCl Confirm 02/10/25 18:17 Ondansetron Hcl 4 Mg/2 Ml Vial Administered 02/10/25 18:18 Dose 4 mg .ROUTE .STK-MED ONE Piperacillin Sod/Tazobactam Sod Confirm 02/10/25 18:18 Piperacillin/Tazobactam Sodium 3.375 Gm Vial Administered 02/10/25 18:19 Dose 3.375 gm IV .STK-MED ONE Lab/Rad Data: Laboratory Result Diagrams 02/10/25 17:00 02/10/25 17:00 Laboratory Results 02/10/25 02/10/25 02/10/25 Range/Units 17:42 17:05 17:00 WBC (4.23-9.07) x10^3/uL RBC (4.63-6.08) x10^6/uL Hgb (13.7-17.5) g/dL Hct (40.1-51.0) % MCV (79.0-92.2) fL MCH (25.7-32.2) pg MCHC (32.3-36.5) g/dL RDW (11.6-14.4) % Plt Count (163-337) x10^3/uL MPV (9.4-12.4) fL Gran % (34.0-67.9) % Immature Gran % (Auto) (0.001-0.429) % Nucleat RBC Rel Count (0.00-0.2) % Eos # (Auto) (0.04-0.54) x10^3/uL Immature Gran # (Auto) (0.001-0.031) x10^3u/L Absolute Lymphs (auto) (1.32-3.57) x10^3/uL Absolute Monos (auto) (0.30-0.82) x10^3/uL Absolute Nucleated RBC (0.00-0.012) x10^3u/L Lymphocytes % (21.8-53.1) % Monocytes % (5.3-12.2) % Eosinophils % (0.8-7.0) % Basophils % (0.2-1.2) % Absolute Granulocytes (1.78-5.38) x10^3/uL Basophils # (0.01-0.08) x10^3/uL PT 11.4 (9.4-12.5) SECONDS INR 1.05 (0.8-3.0) APTT 32.5 (25.1-36.5) SECONDS Sodium (135-145) mmol/L Potassium (3.5-5.1) mmol/L Chloride (98-107) mmol/L Carbon Dioxide (22-30) mmol/L Anion Gap (5-15) MEQ/L BUN (9-20) mg/dL Creatinine (0.66-1.25) mg/dL Estimated GFR ML/MIN Glucose (74-106) mg/dL Lactic Acid 1.5 (0.4-2.0) Calcium (8.4-10.2) mg/dL Total Bilirubin (0.2-1.3) mg/dL AST (17-59) U/L ALT (0-50) U/L Alkaline Phosphatase (38-126) U/L Serum Total Protein (6.3-8.2) g/dL Albumin (3.5-5.0) g/dL Lipase (23-300) U/L Urine Color [place] A (Yellow) Urine Appearance Clear (Clear) Urine pH 5.0 (4.6-8.0) Ur Specific [place] 1.025 (1.005-1.030) Urine Protein 30 (Negative) Urine Glucose (UA) Negative (Negative) mg/dL Urine Ketones Trace A (Negative) Urine Blood Negative (Negative) Urine Nitrite Positive A (Negative) Urine Bilirubin Small A (Negative) Urine Urobilinogen 1.0 A (0.2) mg/dL Ur Leukocyte Esterase Trace A (Negative) U Hyaline Cast (Auto) 3-5 A (0-2) /LPF Urine Microscopic RBC 0-2 (0-5) /HPF Urine Microscopic WBC 3-5 (0-5) /HPF Ur Epithelial Cells Few (None Seen) /HPF Urine Bacteria None Seen (None Seen) /HPF Urine Culture Reflexed YES (NO) Slides for Path Review 02/10/25 02/10/25 Range/Units 17:00 17:00 WBC 19.2 H (4.23-9.07) x10^3/uL RBC 5.12 (4.63-6.08) x10^6/uL Hgb 15.7 (13.7-17.5) g/dL Hct 45.3 (40.1-51.0) % MCV 88.5 (79.0-92.2) fL MCH 30.7 (25.7-32.2) pg MCHC 34.7 (32.3-36.5) g/dL RDW 13.2 (11.6-14.4) % Plt Count 217 (163-337) x10^3/uL MPV 10.7 (9.4-12.4) fL Gran % 81.0 H (34.0-67.9) % Immature Gran % (Auto) 0.5 H (0.001-0.429) % Nucleat RBC Rel Count 0.0 (0.00-0.2) % Eos # (Auto) 0.10 (0.04-0.54) x10^3/uL Immature Gran # (Auto) 0.10 H (0.001-0.031) x10^3u/L Absolute Lymphs (auto) 1.74 (1.32-3.57) x10^3/uL Absolute Monos (auto) 1.65 H (0.30-0.82) x10^3/uL Absolute Nucleated RBC 0.00 (0.00-0.012) x10^3u/L Lymphocytes % 9.1 L (21.8-53.1) % Monocytes % 8.6 (5.3-12.2) % Eosinophils % 0.5 L (0.8-7.0) % Basophils % 0.3 (0.2-1.2) % Absolute Granulocytes 15.53 H (1.78-5.38) x10^3/uL Basophils # 0.06 (0.01-0.08) x10^3/uL PT (9.4-12.5) SECONDS INR (0.8-3.0) APTT (25.1-36.5) SECONDS Sodium 134 L (135-145) mmol/L Potassium 4.0 (3.5-5.1) mmol/L Chloride 101 (98-107) mmol/L Carbon Dioxide 20 L (22-30) mmol/L Anion Gap 17.1 H (5-15) MEQ/L BUN 23 H (9-20) mg/dL Creatinine 1.64 H (0.66-1.25) mg/dL Estimated GFR 42.8 ML/MIN Glucose 108 H (74-106) mg/dL Lactic Acid (0.4-2.0) Calcium 9.2 (8.4-10.2) mg/dL Total Bilirubin 7.00 H (0.2-1.3) mg/dL AST 40 (17-59) U/L ALT 33 (0-50) U/L Alkaline Phosphatase 68 (38-126) U/L Serum Total Protein 8.1 (6.3-8.2) g/dL Albumin 4.5 (3.5-5.0) g/dL Lipase 39 (23-300) U/L Urine Color (Yellow) Urine Appearance (Clear) Urine pH (4.6-8.0) Ur Specific [place] (1.005-1.030) Urine Protein (Negative) Urine Glucose (UA) (Negative) mg/dL Urine Ketones (Negative) Urine Blood (Negative) Urine Nitrite (Negative) Urine Bilirubin (Negative) Urine Urobilinogen (0.2) mg/dL Ur Leukocyte Esterase (Negative) U Hyaline Cast (Auto) (0-2) /LPF Urine Microscopic RBC (0-5) /HPF Urine Microscopic WBC (0-5) /HPF Ur Epithelial Cells (None Seen) /HPF Urine Bacteria (None Seen) /HPF Urine Culture Reflexed (NO) Slides for Path Review YES - Progress Progress Note: 02/10/25 18:09 Patient has clinical evidence of obstructing gall stones. He has multiple gallstones without sonographic Aparicio's or gallbladder wall thickening or common bile duct dilatation however have to suspect that he is likely has a gallstone obstruction. Patient has been informed and will have to arrange transfer to 1 of 3 centers that have ERCP capability including [facility], [facility] or [facility] 02/10/25 19:08 Hospital course. I have spoken with Dr. Evans ERCP GI at who wanted confirmation of there being a ductal stone before he accepted patient. To avoid patient him to have multiple transfers and the fact that we do not have MRCP capability here tonight I do not want to transfer to the hospital that would potentially have to transfer him again. In this vein I speak to [facility] Dr. Cash who accepts patient and is capable full service GI as needed. - Departure Departure Disposition: Transfer ([facility]) Clinical Impression: Gallbladder calculus with obstruction Condition: Stable Critical Care Time: No Referrals: CHRISSY PETERSEN DO [Primary Care Provider, [facility]] - Follow up/PCP as directed
[2025-02-10 18:04] LABS: Glucose, Urine Negative (Negative); Protein,Urine Dip 30 (Negative); RBC 0-2 /HPF (0-5)
[2025-02-10] MEDS ORDERED: Zofran 4 MG/2 ML VIAL ONE (18:17)
[2025-02-10] MEDS ORDERED: PIPERACILLIN/TAZOBACTAM IV ONE (18:18)
[2025-02-10] MEDS ORDERED: Hydromorphone 1 mg/ml Injection ONE (18:18)
[2025-02-10 18:24] LABS: Slide Review 1 YES
[2025-02-10] MEDS: Hydromorphone 1 mg/ml Injection IV ONE (18:26)
[2025-02-10] MEDS: Zofran 4 MG/2 ML VIAL IV ONE (18:34)
[2025-02-11 01:05] VITALS: BP 125/61; PULSE 67; RESP 19; O2SAT 91
--- NOTE | 2025-02-11 08:34 | XRAY ---
Indication: Choledocholithiasis. Two-dimensional gallbladder sonogram performed. Comparison: None Pancreas obscured due to overlying bowel gas. Visualized gallbladder normally distended with a few subcentimeter gallstones. No abnormal gallbladder wall thickening or pericholecystic fluid. Common bile duct measures 4.8 mm. No intrahepatic biliary distention. Visualized liver appears fatty in echogenicity. No focal solid/cystic hepatic mass or ascites. Right kidney measures 11.3 x 4.5 x 5.9 cm and sonographically unremarkable. Impression: Cholelithiasis without cholecystitis or biliary distention. Fatty liver. Comment: Preliminary report was given.
== END 2025-02-11 01:38 | disposition short-term general hospital (02) ==
LOC: ED 16:28
DX: K80.21 Calculus of gallbladder without cholecystitis with obstruction (principal); R10.9 Unspecified abdominal pain; I10 Essential (primary) hypertension; Z79.899 Other long term (current) drug therapy; Z72.0 Tobacco use